=== PATIENT | male | born 1940 | race Caucasian/White ===

== ENCOUNTER 2017-05-13 22:26 | Emergency (ER) | payer MEDICARE ==
[~2017-05-13] VITALS: Ht 182.9 cm; Wt 108.9 kg
--- NOTE | 2017-05-13 22:36 | NUR ---
PT JEREMÍAS FROM A [facility]GREAG[facility] HOME TO ER BED 12 C/O CHRONIC LOWER BACK PAIN. REPORT STATES NO RECENT TRAUMA. HX OF CVA W/ L SIDED DEFICIT. GOWNED AND PLACED ON MONITOR. STABLE VITALS AWAITING MD HARTLEY.
--- NOTE | 2017-05-13 23:00 | NUR ---
DR TAM AT BEDSIDE FOR EVAL.
[2017-05-13] MEDS ORDERED: MORPHINE SULFATE INJ 4 MG/ML DISP.SYRIN ONE (23:08)
[2017-05-13] MEDS ORDERED: MORPHINE SULFATE INJ 2 MG/ML DISP.SYRIN IM ONE (23:30)
--- NOTE | 2017-05-14 00:30 | NUR ---
PT SLEEPING. ON MONITOR W/ STABLE VITALS. WILL CONTINUE TO MONITOR.
--- NOTE | 2017-05-14 03:40 | NUR ---
AMBULNZ AT BEDSIDE FOR TRANSPORT HOME.
--- NOTE | 2017-05-14 06:10 | NUR ---
dr garduno at bedside for eval.
[2017-05-14] MEDS ORDERED: HYDROCODONE/APAP 10/325MG 1 EA TABLET PO ONE (07:00)
[2017-05-14] MEDS ORDERED: ONDANSETRON 4 MG TAB.RAPDIS SL ONE (07:00)
--- NOTE | 2017-05-14 07:33 | NUR ---
patient resting in er bed, no distress noted. VITAL SIGNS UPDATED.
--- NOTE | 2017-05-14 07:37 | NUR ---
sanat bocanegra, sister [phone]. sister states he lives at a facility; [address] [facility]. [phone]
--- NOTE | 2017-05-14 07:43 | NUR ---
Sourav from [facility] took report for fco
[2017-05-14 09:21] VITALS: BP 122/75
--- NOTE | 2017-05-14 10:48 | NUR ---
SPOKE WITH AIDEN, NURSE AT [facility], TO CONTINUE CERDA OF PATIENT
--- NOTE | 2017-05-14 10:49 | NUR ---
REPORT WAS GIVEN TO EMT FOR TRANSPORT
== END 2017-05-14 09:22 | disposition home or self-care (01) ==
LOC: ER 22:28
DX: M54.5 Low back pain (principal); E11.9 Type 2 diabetes mellitus without complications; Z86.73 Personal history of transient ischemic attack (TIA), and cerebral infarction without residual deficits
CPT/HCPCS: 72131-TC; 82962-TC; A4606; J2270; Z7610

== ENCOUNTER 2017-11-28 17:20 | Inpatient (IN) | payer MEDICARE ==
[~2017-11-28] VITALS: Ht 182.9 cm; Wt 83.5 kg
--- NOTE | 2017-11-28 18:20 | NUR ---
77 Y/O MALE PLACED IN BED 2 C/O CHRONIC LOWER BACK PAIN.
--- NOTE | 2017-11-28 18:23 | NUR ---
PT APPEARS CONFUSED. WANTS ME TO TAKE HIS ARM.
[2017-11-28] MEDS ORDERED: ONDANSETRON HCL/PF 4 MG/2 ML VIAL IVP ONE (18:30)
[2017-11-28] MEDS ORDERED: MORPHINE SULFATE INJ 2 MG/ML DISP.SYRIN IV ONE ×2 (18:30→19:30)
--- NOTE | 2017-11-28 18:34 | NUR ---
22G H/L PLACED TO RIGHT FOREARM. LEFT UPPER EXTREMITY APPEARS SWOLLEN.
[2017-11-28 18:37] LABS: BASOPHILS # (AUTO) 0.1 /CMM (0.0-0.2); BASOPHILS % (AUTO) 0.7 % (0.0-2.0); EOSINOPHILS % (AUTO) 2.2 % (0.0-6.0); HEMATOCRIT 38 % (39-51); HEMOGLOBIN 12.8 g/dL (13.5-17.5); LYMPHOCYTES # (AUTO) 2.1 /CMM (0.8-4.8); LYMPHOCYTES % (AUTO) 24.7 % (20.0-44.0); MEAN CORPUSCULAR HGB CONC 34 g/dl (31.0-36.0); MEAN CORPUSCULAR VOLUME 89 fL (80-96); MONOCYTES # (AUTO) 0.7 /CMM (0.1-1.30); MONOCYTES % (AUTO) 8.5 % (2.0-12.0); NEUTROPHILS # (AUTO) 5.6 /CMM (1.8-8.9); NEUTROPHILS % (AUTO) 63.9 % (43.0-81.0); PLATELET COUNT (AUTO) 498 /CMM (150-450); RDW COEFFICIENT OF VARIATION 14.5 (11.5-15.0); RED BLOOD CELL COUNT(AUTO) 4.29 MIL/uL (4.5-6.0); WHITE BLOOD COUNT (AUTO) 8.7 K/uL (4.3-11.0)
[2017-11-28] MEDS ORDERED: ONDANSETRON HCL/PF 4 MG/2 ML VIAL ONE (18:38)
[2017-11-28] MEDS ORDERED: MORPHINE SULFATE INJ 2 MG/ML DISP.SYRIN ONE (18:39)
[2017-11-28] MEDS ORDERED: INSU100V SQ (18:44)
[2017-11-28] MEDS ORDERED: TEMA15CA PO (18:44)
[2017-11-28] MEDS ORDERED: MORP15TA7 PO (18:44)
[2017-11-28] MEDS ORDERED: ASPI-1152 PO (18:44)
[2017-11-28] MEDS ORDERED: DOCU-270 PO (18:44)
[2017-11-28] MEDS ORDERED: CLOP75TA15 PO (18:44)
[2017-11-28] MEDS ORDERED: ATOR40TA PO (18:44)
--- NOTE | 2017-11-28 18:44 | NUR ---
PT MEDICATED WITH MORPHINE AND ZOFRAN FOR PAIN.
[2017-11-28] MEDS ORDERED: ACET-868 PO (18:46)
[2017-11-28 18:47] LABS: CALCIUM, SERUM 8.9 mg/dL (8.5-10.1); CARBON DIOXIDE 27 mmol/L (21-32); CHLORIDE 105 mmol/L (98-107); CREATININE 0.7 mg/dL (0.6-1.3); GLUCOSE 111 mg/dL (74-106); POTASSIUM 3.5 mmol/L (3.5-5.1); SODIUM SERUM 139 mmol/L (136-145); UREA NITROGEN, BLOOD 8 mg/dL (7-18)
[2017-11-28 18:54] LABS: ALANINE AMINOTRANSFERASE 10 U/L (12-78); ALBUMIN 2.3 g/dL (3.4-5.0); ALKALINE PHOSPHATASE 82 U/L (46-116); ASPARTATE AMINOTRANSFERASE 19 U/L (15-37); BILIRUBIN,DIRECT 0.2 mg/dL (0.0-0.2); BILIRUBIN,TOTAL 0.7 mg/dL (0.2-1.0); TOTAL PROTEIN, SERUM 7.2 g/dL (6.4-8.2)
[2017-11-28] MEDS ORDERED: MORPHINE SULFATE INJ 4 MG/ML DISP.SYRIN ONE (19:29)
--- NOTE | 2017-11-28 20:04 | NUR ---
URINE COLLECTED. CALLED LAB FOR TRAVELING SALES REPRESENTATIVE.
--- NOTE | 2017-11-28 20:10 | NUR ---
CALLED [employer]UMINUM BOAT ASSEMBLY SUPERVISOR WAS PAGED.
[2017-11-28] MEDS ORDERED: CEFTRIAXONE 1 G VIAL IM SCH (20:30)
[2017-11-28 20:40] LABS: APPEARANCE,URINE Clear (CLEAR); BILIRUBIN,URINE SMALL (NEGATIVE); BLOOD, URINE Negative Ery/uL (NEGATIVE); KETONES,URINE 40 (NEGATIVE); LEUKOCYTE ESTERASE ,URINE Negative (NEGATIVE); NITRITE, URINE Negative (NEGATIVE); PH,URINE 5.5 (5.0-8.0); PROTEIN,URINE Negative (NEGATIVE); UGLUCOSE Negative (NEGATIVE)
[2017-11-28 20:49] LABS: COLOR,URINE Dark Yellow (YELLOW)
[2017-11-28] MEDS ORDERED: CEFTRIAXONE 1GM BAG (ER ONLY) 50 ML IV ONE (20:58)
--- NOTE | 2017-11-28 20:58 | NUR ---
REPORT GIVEN TO ELLEN WATKINS
[2017-11-28] MEDS ORDERED: CEFTRIAXONE 1GM BAG (ER ONLY) 1 GM/50 ML PIGGYBACK IV ONE (21:00)
[2017-11-28 21:02] LABS: BACTERIA,URINE Few /HPF (None Seen); RBC,URINE 0-2 /HPF (0-2); SQUAMOUS EPITHELIAL CELL,UR Few /HPF (None Seen); WBC,URINE 0-2 /HPF (0-3)
--- NOTE | 2017-11-28 21:20 | NUR ---
PT TO CT.
--- NOTE | 2017-11-28 21:26 | NUR ---
PT RETURNED FROM CT.
[2017-11-28] MEDS ORDERED: LORAZEPAM INJ 2 MG/ML VIAL ONE (21:42)
[2017-11-28] MEDS: LORAZEPAM INJ 2 MG/ML VIAL IV PRN (21:48)
--- NOTE | 2017-11-28 22:00 | NUR ---
UPDATED ELLEN WATKINS REGARDING POC/ PENDING CT ABD.
--- NOTE | 2017-11-28 22:17 | NUR ---
CALLED [facility] FOR PENDINDG CT ABD. TO BE READ NEXT.
[2017-11-28 23:25] VITALS: BP 128/76
--- NOTE | 2017-11-28 23:33 | NUR ---
PT TRANSFERRED VIA GURNEY TO MS BED 327-2
[2017-11-29] MEDS ORDERED: ONDANSETRON HCL/PF 4 MG/2 ML VIAL IVP PRN
[2017-11-29] MEDS ORDERED: ACETAMINOPHEN 325 MG TABLET PO PRN ×2
--- NOTE | 2017-11-29 00:15 | NUR ---
RN NOTE: RECEIVED PATIENT FROM ER, NO ACUTE DISTRESS NOTE. BREATHING EVEN AND UNLABORED, NO SOB NOTED. IV TO RFA IN PLACE. ORIENTED PATIENT TO ROOM AND USE OF CALL LIGHT. AWAITING ADMIT ORDERS. BED LOCKED AND IN LOWEST POSITION, CALL LIGHT IN REACH. WILL CONTINUE TO MONITOR.
[2017-11-29] MEDS ORDERED: LEVOFLOXACIN 500 MG /D5W 100ML 100 ML IV ONE (00:37)
[2017-11-29] MEDS: LEVOFLOXACIN 500 MG /D5W 100ML 500 MG in PREMIX 1 EA IV SCH ×2 (00:51→21:46)
[2017-11-29] MEDS: HYDROMORPHONE INJ 2 MG/ML DISP.SYRIN IV PRN ×2 (01:40→10:24)
--- NOTE | 2017-11-29 01:45 | NUR ---
BOAT ENGINES INSTALLER NOTE: PATIENT COMPLAINS OF BACK PAIN 08/26, DILAUDID 0.5MG IV GIVEN PER MD ORDER. WILL CONTINUE TO MONITOR.
[2017-11-29 04:00] VITALS: BP 140/64
[2017-11-29] MEDS ORDERED: DEXTROSE 50%-WATER 50 ML DISP.SYRIN IV PRN (06:00)
--- NOTE | 2017-11-29 06:30 | NUR ---
MS RN NOTE: PATIENT RESTING IN BED, NO ACUTE DISTRESS NOTED. BREATHING EVEN AND UNLABORED, NO SOB NOTED. IV TO RFA IN PLACE. TELE READING SR WITH BBB 70. PATIENT BLOOD SUGAR LEVEL 96MG/DL, NO INSULIN NEEDED PER SLIDING SCALE. SNACK PROVIDED, NO S/S OF HYPOGLYCEMIA NOTED. BED LOCKED AND IN LOWEST POSITION, CALL LIGHT IN REACH. WILL ENDORSE TO DAY NURSE TO CONTINUE WITH PLAN OF CARE.
[2017-11-29] MEDS: BLOOD SUGAR DIAGNOSTIC 1 EACH STRIP IN SCH ×4 (06:59→22:20)
[2017-11-29] MEDS ORDERED: NA PHOS,M-B/NA PHOS,DI-BA 1 EA ENEMA RC PRN (07:30)
[2017-11-29 08:00] VITALS: BP 135/60
--- NOTE | 2017-11-29 08:00 | NUR ---
CHASER HELPER AM NOTES PATIENT RESTING IN BED,WITH CONFUSION. NO ACUTE DISTRESS NOTED. BREATHING EVEN AND UNLABORED, NO SOB NOTED. IV TO RFA IN PLACE. TELE READING SR 70. PATIENT BLOOD SUGAR LEVEL 96MG/DL, NO INSULIN NEEDED PER SLIDING SCALE. SNACK PROVIDED, NO S/S OF HYPOGLYCEMIA NOTED. BED LOCKED AND IN LOWEST POSITION, CALL LIGHT WITHIN REACH. WILL CONTINUE PLAN OF CARE
[2017-11-29 08:13] LABS: BASOPHILS # (AUTO) 0.1 /CMM (0.0-0.2); BASOPHILS % (AUTO) 2.6 % (0.0-2.0); HEMATOCRIT 35 % (39-51); HEMOGLOBIN 11.4 g/dL (13.5-17.5); LYMPHOCYTES # (AUTO) 1.5 /CMM (0.8-4.8); LYMPHOCYTES % (AUTO) 25.4 % (20.0-44.0); MEAN CORPUSCULAR HGB CONC 32 g/dl (31.0-36.0); MEAN CORPUSCULAR VOLUME 92 fL (80-96); MONOCYTES # (AUTO) 0.6 /CMM (0.1-1.30); MONOCYTES % (AUTO) 10.8 % (2.0-12.0); NEUTROPHILS # (AUTO) 3.3 /CMM (1.8-8.9); NEUTROPHILS % (AUTO) 58.2 % (43.0-81.0); PLATELET COUNT (AUTO) 427 /CMM (150-450); RED BLOOD CELL COUNT(AUTO) 3.84 MIL/uL (4.5-6.0); WHITE BLOOD COUNT (AUTO) 5.7 K/uL (4.3-11.0)
[2017-11-29 08:35] LABS: ALANINE AMINOTRANSFERASE 7 U/L (12-78); ALBUMIN 2.1 g/dL (3.4-5.0); ALKALINE PHOSPHATASE 66 U/L (46-116); ASPARTATE AMINOTRANSFERASE 17 U/L (15-37); BILIRUBIN,TOTAL 0.6 mg/dL (0.2-1.0); CALCIUM, SERUM 8.7 mg/dL (8.5-10.1); CARBON DIOXIDE 24 mmol/L (21-32); CHLORIDE 103 mmol/L (98-107); CREATININE 0.7 mg/dL (0.6-1.3); GLUCOSE 99 mg/dL (74-106); MAGNESIUM 1.5 mg/dL (1.8-2.4); POTASSIUM 3.9 mmol/L (3.5-5.1); SODIUM SERUM 136 mmol/L (136-145); TOTAL PROTEIN, SERUM 6.7 g/dL (6.4-8.2); UREA NITROGEN, BLOOD 7 mg/dL (7-18)
[2017-11-29 08:38] LABS: TROPONIN I < 0.017 ng/mL (0.00-0.056)
[2017-11-29 08:46] LABS: CHOLESTEROL 170 mg/dL (<200); HDL CHOLESTEROL 54 mg/dL (40-60); LDL 111 mg/dL (0-99); THYROID STIMULATING HORMONE 1.659 uIU/mL (0.358-3.74); TRIGLYCERIDES 61 mg/dL (30-150)
[2017-11-29] MEDS: ASPIRIN EC 81 MG TABLET.DR PO SCH (10:01)
[2017-11-29] MEDS: DOCUSATE SODIUM 100 MG CAPSULE PO SCH ×2 (10:01→16:56)
[2017-11-29] MEDS: CLOPIDOGREL BISULFATE 75 MG TABLET PO SCH (10:01)
[2017-11-29] MEDS: LORAZEPAM INJ 2 MG/ML VIAL IV PRN (10:02)
[2017-11-29] MEDS: MORPHINE SULFATE SR 15 MG TABLET.SA PO SCH ×2 (10:02→16:56)
[2017-11-29] MEDS: PANTOPRAZOLE 40 MG TABLET.DR PO SCH (10:11)
[2017-11-29] MEDS: Magnesium 1GM/D5W 100ML PREMIX 100 ML IV SCH ×2 (12:18→14:35)
[2017-11-29] MEDS: INSULIN REGULAR, HUMAN 100 UNIT/ML 3 ML VIAL SQ PRN ×3 (12:24→22:23)
--- NOTE | 2017-11-29 15:30 | NUR ---
PT MOVED TO ROOM 304-1 NEEDING A SITTER DUE TO SEVERE RESTLESSNESS,HANGING HIS LEGS OVER THE SIDERAILS SEVERAL TIMES,RIPPING OFF HIS DIAPER SEVERAL TIMES AND REPLACING THEM TO A NEW ONE,INSPITE OF REORIENTATION GIVEN FREQUENTLY.NOTIFIED DODIE ANGUIANO WITH ORDERS FOR SITTER 1:1.
[2017-11-29] MEDS ORDERED: SILVER NITRATE APPLICATOR 1 EA BOX TP ONE (16:30)
[2017-11-29] MEDS ORDERED: LIDOCAINE 2%-EPI 1:100,000 30 ML VIAL TP ONE (16:30)
--- NOTE | 2017-11-29 18:00 | NUR ---
PT ATE 100% WITH VERY GOOD APPETITE.DENIES ANY PAIN OR DISTRESS.PLACED ON AIR MATTRESS.TURNED EVERY TWO HRS.WITH 1:1 SITTER AT BEDSIDE DUE TO RESTLESSNESS AND CONFUSION.WILL MONITOR.
[2017-11-29] MEDS: NYSTATIN TOP POWDER 15 GM BOTTLE TP SCH (18:30)
[2017-11-29] MEDS: NEOMY SULF/BACITRAC ZN/POLY 15 GM TUBE TP SCH (18:30)
--- NOTE | 2017-11-29 19:30 | NUR ---
MS RN OPENING NOTES RECEIVED PATIENT RESTING IN BED, A & O X1 WITH CONFUSION. NO S/S OF PAIN, NO ACUTE DISTRESS NOTED. BREATHING EVEN AND UNLABORED, NO SOB NOTED, AT RA SATTING 95%. IV ACCESS LEFT HAND, SL. PER REPORT, ON 1:1 SITTER FOR SAFETY DUE TO RESTLESSNESS & ATTEMPTING TO PULL IV ACCESS & REMOVING HIS CLOTHES/DIAPER CONSTANTLY. NO S/S OF HYPOGLYCEMIA NOTED. BED LOCKED AND IN LOWEST POSITION, SAFETY MEASURES IN PLACE. CALL LIGHT WITHIN REACH. WILL CONTINUE TO OBSERVE CLOSELY.
[2017-11-29 20:00] VITALS: BP 149/80
[2017-11-29] MEDS ORDERED: LORAZEPAM INJ 2 MG/ML VIAL IV PRN (21:00)
[2017-11-29 21:15] VITALS: BP 132/75
--- NOTE | 2017-11-29 21:38 | NUR ---
PRN ATIVAN GIVEN DR MOORE WAS CALLED TO CLARIFY ATIVAN ORDER, MD DISCONTINUED PREVIOUS ATIVAN WITH NEW ATIVAN ORDER. NOTED & CARRIED OUT. PATIENT NOTED TO BE ANXIOUS, RESTLESS AT THIS TIME, MD MADE AWARE & PRN ATIVAN GIVEN ORDERED. PT IS ON 1:1 SITTER OBSERVATION WELL FOR SAFETY. WILL REASSESS FOR EFFECTIVENESS.
--- NOTE | 2017-11-29 21:40 | NUR ---
IV SITE CHANGED PATIENT NOTED TO BE AGITATED, PULLED HIS IV CATH FROM LEFT HAND, VERY MINIMAL BLEEDING NOTED, PRESSURE DRESSING APPLIED. NEW IV CATH INSERTED TO RIGHT FOREARM WITH GOOD BLOOD FLOW. PROCEDURE TOLERATED WELL BY THE PATIENT. WILL MONITOR CLOSELY.
[2017-11-29] MEDS: ATORVASTATIN 40 MG TABLET PO SCH (21:46)
--- NOTE | 2017-11-29 23:00 | NUR ---
MS RN NOTE PATIENT NOTED TO BE AWAKE BUT RELAXED AT THIS TIME. ON 1:1 SITTER FOR SAFETY. WILL MONITOR CLOSELY.
[2017-11-30] MEDS: NYSTATIN TOP POWDER 15 GM BOTTLE TP SCH ×2 (05:38→16:46)
--- NOTE | 2017-11-30 06:47 | NUR ---
MS RN CLOSING NOTES PATIENT SLEPT INTERMITTENTLY AT NIGHT, A & O X1 WITH CONFUSION. NO S/S OF PAIN, NO ACUTE DISTRESS NOTED. BREATHING EVEN AND UNLABORED, NO SOB NOTED, AT RA SATTING 96%. IV ACCESS TO RIGHT FA, SL. ON 1:1 SITTER FOR SAFETY. ALL NEEDS MET. TURNED & REPOSITIONED PER PROTOCOL. BED LOCKED AND IN LOWEST POSITION, SAFETY MEASURES IN PLACE. CALL LIGHT WITHIN REACH. WILL ENDORSE TO AM RN FOR CONTINUITY OF CARE.
--- NOTE | 2017-11-30 07:00 | NUR ---
RN OPENING NOTES RECEIVED PT. IN BED A&OX1, AND CONFUSED. BREATHING IS UNLABORED ON ROOM AIR. NO S/S OF ACUTE DISTRESS. PT. HAS A 1:1 SITTER AT BEDSIDE. BED IS IN LOWEST, AND LOCKED POSITION. 2 SIDE RAILS UP, AND CALL LIGHT WITHIN REACH. ALL NEED MET. WILL CONTINUE TO ASSESS AND MONITOR.
[2017-11-30] MEDS: BLOOD SUGAR DIAGNOSTIC 1 EACH STRIP IN SCH ×4 (07:24→21:51)
[2017-11-30] MEDS: PANTOPRAZOLE 40 MG TABLET.DR PO SCH (07:30)
[2017-11-30 07:37] VITALS: BP 112/70
--- NOTE | 2017-11-30 07:55 | NUR ---
PROTONIX WAS NOT ADMINISTERED. PT. NEEDS ALL MEDICATIONS CRUSHED IN APPLE SAUCE. PROTONIX TAB CANNOT BE CRUSHED.
[2017-11-30] MEDS: MORPHINE SULFATE SR 15 MG TABLET.SA PO SCH (09:00)
[2017-11-30] MEDS ORDERED: PANTOPRAZOLE 40 MG/PACK PACK NG SCH (09:04)
[2017-11-30] MEDS: NEOMY SULF/BACITRAC ZN/POLY 15 GM TUBE TP SCH (09:13)
[2017-11-30] MEDS: ASPIRIN EC 81 MG TABLET.DR PO SCH (09:13)
[2017-11-30] MEDS: CLOPIDOGREL BISULFATE 75 MG TABLET PO SCH (09:13)
[2017-11-30 09:52] LABS: CALCIUM, SERUM 7.9 mg/dL (8.5-10.1); CARBON DIOXIDE 24 mmol/L (21-32); CHLORIDE 102 mmol/L (98-107); CREATININE 0.7 mg/dL (0.6-1.3); GLUCOSE 108 mg/dL (74-106); POTASSIUM 4.1 mmol/L (3.5-5.1); SODIUM SERUM 135 mmol/L (136-145); UREA NITROGEN, BLOOD 5 mg/dL (7-18)
[2017-11-30 09:54] LABS: BASOPHILS % (AUTO) 0.9 % (0.0-2.0); EOSINOPHILS % (AUTO) 1.4 % (0.0-6.0); HEMATOCRIT 33 % (39-51); HEMOGLOBIN 10.8 g/dL (13.5-17.5); LYMPHOCYTES # (AUTO) 1.1 /CMM (0.8-4.8); MEAN CORPUSCULAR HGB CONC 33 g/dl (31.0-36.0); MEAN CORPUSCULAR VOLUME 91 fL (80-96); MONOCYTES # (AUTO) 0.6 /CMM (0.1-1.30); MONOCYTES % (AUTO) 11.5 % (2.0-12.0); NEUTROPHILS # (AUTO) 3.5 /CMM (1.8-8.9); NEUTROPHILS % (AUTO) 65.2 % (43.0-81.0); PLATELET COUNT (AUTO) 413 /CMM (150-450); RDW COEFFICIENT OF VARIATION 15.8 (11.5-15.0); RED BLOOD CELL COUNT(AUTO) 3.58 MIL/uL (4.5-6.0); WHITE BLOOD COUNT (AUTO) 5.4 K/uL (4.3-11.0)
[2017-11-30] MEDS ORDERED: MORPHINE SULFATE INJ 4 MG/ML DISP.SYRIN IV PRN (10:00)
[2017-11-30 10:17] LABS: INR 1.05 (0.87-1.13)
[2017-11-30] MEDS: INSULIN REGULAR, HUMAN 100 UNIT/ML 3 ML VIAL SQ PRN ×3 (12:00→21:52)
[2017-11-30 15:50] VITALS: BP 115/59
[2017-11-30] MEDS: PANTOPRAZOLE 40 MG VIAL IV SCH (16:33)
[2017-11-30] MEDS: Magnesium 1GM/D5W 100ML PREMIX 100 ML IV SCH ×2 (16:40→17:51)
[2017-11-30] MEDS: DOCUSATE SODIUM LIQ 100 MG/10 ML UDC PO SCH (16:47)
--- NOTE | 2017-11-30 18:25 | NUR ---
RAPID INFLUENZA AND SPUTUM CULTURE WAS COLLECTED AND LAB WAS NOTIFIED.
--- NOTE | 2017-11-30 19:00 | NUR ---
RN CLOSING NOTES PT. IS IN BED A&OX1, AND CONFUSED. BREATHING IS UNLABORED ON ROOM AIR. NO S/S OF ACUTE DISTRESS. PT. HAS A 1:1 SITTER AT BEDSIDE. BED IS IN LOWEST, AND LOCKED POSITION. 2 SIDE RAILS UP, AND CALL LIGHT WITHIN REACH. ALL NEED MET. WILL ENDORSE REPORT TO NURSE.
--- NOTE | 2017-11-30 19:50 | NUR ---
RN OPENING NOTES PT AWAKE AND ALERT TO NAME. SITTER AT BEDSIDE. PT IS IN ROOM AIR, TOLERATING WELL, NO SIGNS OF DISTRESS, NO SOB. IV ACCESS ON THE RIGHT FOREARM 24G PATENT AND INTACT. WOUND DRESSINGS ARE INTACT, WILL CHANGE LATER. PT VOMITTED YELLOW. PT GIVEN ZOFRAN, WILL CONTINUE TO MONITOR. SAFETY MEASURES IN PLACED, CALL LIGHT WITHIN REACH. WILL CONTINUE TO MONITOR PT.
[2017-11-30 20:00] VITALS: BP 130/69
--- NOTE | 2017-11-30 21:24 | NUR ---
RN NOTES/ TRANSFER OF CARE GAVE REPORT TO ELLEN PRATT FOR TRANSFER OF CONTINUITY CARE. PATIENT IS STABLE AT THIS MOMENT, SLEEPING IN BED, EASILY AROUSED. NO NAUSEA AND VOMITING. SITTER AT BEDSIDE.
--- NOTE | 2017-11-30 21:30 | NUR ---
RN INITIAL NOTES: RECEIVED REPORT FROM RUBIO HUGHES. PT IN BED, CONFUSED A/O X1 TO SELF ONLY, SITTER AT BED SIDE, PT TRYING TO GET OUT OF BED BY MANAGING TO PUT HIS LEGS OUT OF THE BED. IV ACCESS PATENT AND FLUSHING WELL, ON HL. BLE OFFLOADED. ON [employer] MATTRESS. SAFETY PRECAUTIONS FOR FALL INITIATED, CALL LIGHT IN REACH WILL CONTINUE MONITORING PT
[2017-11-30] MEDS: ATORVASTATIN 40 MG TABLET PO SCH (21:52)
--- NOTE | 2017-11-30 21:52 | NUR ---
bs 154: accu check performed and result is 154, insulin held at this time as pt been throwing up with food particles yellow colored, prn zofran administered. will montior for any s/s of hypoglycemia
[2017-11-30] MEDS: CADEXOMER IODINE 40 GM TUBE TP SCH (21:59)
[2017-11-30] MEDS: LEVOFLOXACIN 500 MG /D5W 100ML 500 MG in PREMIX 1 EA IV SCH (21:59)
--- NOTE | 2017-12-01 02:30 | NUR ---
TRANSFER OF CARE: PT IN BED, REMAINS CONFUSED, ON RA. SITTER AT BED SIDE. NO FACIAL GRIMACE NOTED, IV ACCESS REMAINS PATENT AND FLUSHING WELL, ON HL. REPORT GIVEN TO RUBIO HUGHES FOR CONTINUITY OF CARE.
[2017-12-01] MEDS: NYSTATIN TOP POWDER 15 GM BOTTLE TP SCH ×2 (05:19→16:33)
[2017-12-01 06:26] LABS: BASOPHILS % (AUTO) 0.5 % (0.0-2.0); EOSINOPHILS % (AUTO) 0.4 % (0.0-6.0); HEMATOCRIT 36 % (39-51); HEMOGLOBIN 11.7 g/dL (13.5-17.5); LYMPHOCYTES # (AUTO) 1.2 /CMM (0.8-4.8); MEAN CORPUSCULAR HGB CONC 33 g/dl (31.0-36.0); MEAN CORPUSCULAR VOLUME 91 fL (80-96); MONOCYTES # (AUTO) 0.6 /CMM (0.1-1.30); MONOCYTES % (AUTO) 6.1 % (2.0-12.0); NEUTROPHILS # (AUTO) 7.8 /CMM (1.8-8.9); PLATELET COUNT (AUTO) 450 /CMM (150-450); RDW COEFFICIENT OF VARIATION 15.7 (11.5-15.0); RED BLOOD CELL COUNT(AUTO) 3.92 MIL/uL (4.5-6.0); WHITE BLOOD COUNT (AUTO) 9.6 K/uL (4.3-11.0)
[2017-12-01] MEDS: BLOOD SUGAR DIAGNOSTIC 1 EACH STRIP IN SCH ×4 (06:31→22:32)
[2017-12-01] MEDS: INSULIN REGULAR, HUMAN 100 UNIT/ML 3 ML VIAL SQ PRN ×3 (06:32→22:28)
--- NOTE | 2017-12-01 06:35 | NUR ---
RN NOTES/ BLOOD SUGAR BLOOD SUGAR OF 137, 2 UNITS OF INSULIN GIVEN. NO SIGNS OF HYPO/HYPERGLYCEMIA.
--- NOTE | 2017-12-01 06:41 | NUR ---
RN CLOSING NOTES PT AWAKE AND ALERT TO NAME, FORGETFUL. SITTER AT BEDSIDE. PT IS IN ROOM AIR, TOLERATING WELL, NO SIGNS OF DISTRESS, NO SOB. IV ACCESS ON THE RIGHT FOREARM 24G PATENT AND INTACT. WOUND DRESSINGS ARE INTACT. DENIES ANY NAUSEA, NO VOMITING. SUPPLIES FOR DEBRIDEMENT IS AT BEDSIDE. SAFETY MEASURES IN PLACED, CALL LIGHT WITHIN REACH. WILL ENDORSE CONTINUITY OF CARE TO ONCOMING RN.
[2017-12-01 06:46] LABS: CALCIUM, SERUM 8.2 mg/dL (8.5-10.1); CARBON DIOXIDE 26 mmol/L (21-32); CHLORIDE 103 mmol/L (98-107); CREATININE 0.8 mg/dL (0.6-1.3); GLUCOSE 150 mg/dL (74-106); MAGNESIUM 1.8 mg/dL (1.8-2.4); PHOSPHORUS 2.2 mg/dL (2.5-4.9); POTASSIUM 3.5 mmol/L (3.5-5.1); SODIUM SERUM 138 mmol/L (136-145); UREA NITROGEN, BLOOD 5 mg/dL (7-18)
--- NOTE | 2017-12-01 07:50 | NUR ---
MS RN OPENING NOTES PT WAS RECEIVED IN BED AT LOWEST AND LOCKED POSITION WITH SIDE RAILS UP X2, A/OX 1, NO S/S OF PAIN OR DISTRESS NOTED, BREATHING EVEN AND UNLABORED ON RA, IV IS PATENT AND INTACT, SITTER AT BEDSIDE, SAFETY PRECAUTIONS IN PLACE, CALL LIGHT IN REACH, WILL MONITOR ACCORDINGLY.
[2017-12-01] MEDS: DOCUSATE SODIUM LIQ 100 MG/10 ML UDC PO SCH ×3 (08:23→16:16)
[2017-12-01] MEDS: ASCORBIC ACID 500 MG TABLET PO SCH (08:23)
[2017-12-01] MEDS: CLOPIDOGREL BISULFATE 75 MG TABLET PO SCH (08:24)
[2017-12-01] MEDS: ASPIRIN EC 81 MG TABLET.DR PO SCH (08:24)
[2017-12-01] MEDS: ZINC SULFATE 220 MG CAPSULE PO SCH (08:24)
[2017-12-01] MEDS: NEOMY SULF/BACITRAC ZN/POLY 15 GM TUBE TP SCH (08:25)
[2017-12-01] MEDS: CADEXOMER IODINE 40 GM TUBE TP SCH ×2 (08:25→22:31)
--- NOTE | 2017-12-01 08:29 | NUR ---
PT HAD BM SO COLACE WAS HELD
--- NOTE | 2017-12-01 12:00 | NUR ---
WOUND DEBRIDEMENT PERFORMED AT BEDSIDE AT THIS TIME, WILL MONITOR PT ACCORDINGLY
[2017-12-01] MEDS: GABAPENTIN 100 MG CAPSULE PO SCH ×2 (12:11→16:15)
[2017-12-01] MEDS ORDERED: NEUTRA PHOS 1 POWD.PACKET PO ONE (13:00)
[2017-12-01] MEDS: PANTOPRAZOLE 40 MG VIAL IV SCH (16:16)
[2017-12-01] MEDS: NAPROXEN 250 MG TABLET PO SCH (16:16)
--- NOTE | 2017-12-01 16:53 | NUR ---
PT BLOOD GLUCOSE WAS NOTED TO BE 95, PER SLIDING SCALE NO INSULIN REQUIRED AT THIS TIME, WILL MONITOR ACCORDINGLY
--- NOTE | 2017-12-01 18:19 | NUR ---
MS RN CLOSING NOTES PT IN BED AT LOWEST AND LOCKED POSITION WITH SIDE RAILS UP X2, A/OX 1-2, NO S/S OF PAIN OR DISTRESS NOTED, BREATHING EVEN AND UNLABORED ON RA, IV IS PATENT AND INTACT, SITTER AT BEDSIDE, WOUND DEBRIDEMENT PERFORMED TODAY, SAFETY PRECAUTIONS IN PLACE, CALL LIGHT IN REACH, ALL NEEDS ATTENDED TO, WILL ENDORSE TO ONCOMING NIGHT NURSE FOR CONTINUITY OF CARE.
--- NOTE | 2017-12-01 19:30 | NUR ---
MS/RN RECEIVE PATIENT SLEEPING, AROUSABLE, APPEAR COMFORTABLE, NO DISTRESS NOTED, CALL LIGHT IN REACH. WILL MONITOR.
[2017-12-01 20:00] VITALS: BP 110/65
[2017-12-01] MEDS: LEVOFLOXACIN (500MG) 500 MG TABLET PO SCH (22:00)
[2017-12-01] MEDS: ATORVASTATIN 40 MG TABLET PO SCH (22:00)
--- NOTE | 2017-12-01 22:32 | NUR ---
MS/RN UNABLE TO GIVE DUE PO MEDS AT THIS TIME, PATIENT IS SLEEPING, RISK FOR ASPIRATION. WILL GIVE WHEN FULLY AWAKE LATER.
[2017-12-02] MEDS: NYSTATIN TOP POWDER 15 GM BOTTLE TP SCH ×2 (05:30→17:23)
[2017-12-02] MEDS: BLOOD SUGAR DIAGNOSTIC 1 EACH STRIP IN SCH ×4 (06:30→21:18)
--- NOTE | 2017-12-02 06:32 | NUR ---
MS/RN PATIENT IS AWAKE AT THIS TIME, ACCU CHECK DONE, BLOOD SUGAR 62, NO S/S OF HYPOGLYCEMIA, ORANGE JUICE GIVEN, WILL MONITOR.
[2017-12-02 06:38] LABS: CALCIUM, SERUM 8.7 mg/dL (8.5-10.1); CARBON DIOXIDE 26 mmol/L (21-32); CHLORIDE 105 mmol/L (98-107); CREATININE 0.7 mg/dL (0.6-1.3); GLUCOSE 78 mg/dL (74-106); MAGNESIUM 1.9 mg/dL (1.8-2.4); PHOSPHORUS 3.2 mg/dL (2.5-4.9); POTASSIUM 4.4 mmol/L (3.5-5.1); SODIUM SERUM 138 mmol/L (136-145); UREA NITROGEN, BLOOD 8 mg/dL (7-18)
--- NOTE | 2017-12-02 07:30 | NUR ---
MS RN NOTES PATIENT IN BED AWAKE, VERBALLY RESPONSIVE, NO ACUTE DISTRESS NOTED, BREATHING UNLABORED. DENIED ANY PAIN AT THIS TIME. SAFETY MEASURES IN PLACE. SITTER AT BEDSIDE. WILL CONTINUE TO MONITOR ACCORDINGLY.
--- NOTE | 2017-12-02 08:10 | NUR ---
MS RN NOTES PATIENT IN BED, HOB ELEVATED, ATE BREAKFAST, BLOOD SUGAR RECHECKED 139. NO S/X OF HYPERGLYCEMIA NOTED.
[2017-12-02] MEDS: DOCUSATE SODIUM LIQ 100 MG/10 ML UDC PO SCH ×2 (08:54→17:21)
[2017-12-02] MEDS: ZINC SULFATE 220 MG CAPSULE PO SCH (08:54)
[2017-12-02] MEDS: ASCORBIC ACID 500 MG TABLET PO SCH (08:54)
[2017-12-02] MEDS: GABAPENTIN 100 MG CAPSULE PO SCH ×3 (08:54→17:21)
[2017-12-02] MEDS: ASPIRIN EC 81 MG TABLET.DR PO SCH (08:54)
[2017-12-02] MEDS: CADEXOMER IODINE 40 GM TUBE TP SCH ×2 (08:57→21:18)
[2017-12-02] MEDS: NEOMY SULF/BACITRAC ZN/POLY 15 GM TUBE TP SCH (08:59)
[2017-12-02] MEDS: CLOPIDOGREL BISULFATE 75 MG TABLET PO SCH (09:34)
[2017-12-02] MEDS: NAPROXEN 250 MG TABLET PO SCH ×2 (10:22→17:21)
[2017-12-02 10:23] LABS: BASOPHILS # (AUTO) 0.1 /CMM (0.0-0.2); BASOPHILS % (AUTO) 0.8 % (0.0-2.0); EOSINOPHILS % (AUTO) 3.8 % (0.0-6.0); HEMATOCRIT 36 % (39-51); HEMOGLOBIN 11.6 g/dL (13.5-17.5); LYMPHOCYTES # (AUTO) 1.5 /CMM (0.8-4.8); LYMPHOCYTES % (AUTO) 18.4 % (20.0-44.0); MEAN CORPUSCULAR HGB CONC 33 g/dl (31.0-36.0); MEAN CORPUSCULAR VOLUME 92 fL (80-96); MONOCYTES # (AUTO) 0.5 /CMM (0.1-1.30); MONOCYTES % (AUTO) 6.6 % (2.0-12.0); NEUTROPHILS # (AUTO) 5.6 /CMM (1.8-8.9); NEUTROPHILS % (AUTO) 70.4 % (43.0-81.0); PLATELET COUNT (AUTO) 462 /CMM (150-450); RDW COEFFICIENT OF VARIATION 16.1 (11.5-15.0); RED BLOOD CELL COUNT(AUTO) 3.85 MIL/uL (4.5-6.0)
[2017-12-02] MEDS: PANTOPRAZOLE 40 MG VIAL IV SCH (17:21)
--- NOTE | 2017-12-02 19:00 | NUR ---
MS RN NOTES PATIENT IN BED AWAKE, VERBALLY RESPONSIVE, NO ACUTE DISTRESS NOTED, BREATHING UNLABORED. DENIED ANY PAIN AT THIS TIME. DUE MEDICATIONS GIVEN, NO ASE NOTED. NEEDS ATTENDED AND ANTICIPATED. KEPT CLEAN DRY AND COMFORTABLE. HOB ELEVATED. SAFETY MEASURES IN PLACE. SITTER AT BEDSIDE. ENDORSED TO NIGHT NURSE FOR CONTINUITY OF CARE..
--- NOTE | 2017-12-02 19:30 | NUR ---
MS/RN RECEIVE PATIENT AWAKE, ALERT, ORIENTED, COMFORTABLE, NO C/O PAIN, NO DISTRESS NOTED, SITTER AT BEDSIDE. WILL MONITOR.
[2017-12-02 20:00] VITALS: BP 100/62
[2017-12-02] MEDS: ATORVASTATIN 40 MG TABLET PO SCH (21:05)
[2017-12-02] MEDS: LEVOFLOXACIN (500MG) 500 MG TABLET PO SCH (21:06)
--- NOTE | 2017-12-02 21:09 | NUR ---
MS/RN BLOOD SUGAR 155, DID NOT COVER, PATIENT DOES NOT WANT TO HAVE SNACK. EPISODE OF LOW BLOOD SUGAR IN THE A.M.
--- NOTE | 2017-12-03 00:04 | NUR ---
MS/RN PATIENT IS SLEEPING AT THIS TIME, AROUSABLE, APPEAR COMFORTABLE, NO DISTRESS NOTED, SITTER AT BEDSIDE. WILL CONTINUE TO MONITOR.
[2017-12-03] MEDS: NYSTATIN TOP POWDER 15 GM BOTTLE TP SCH ×2 (05:35→17:02)
--- NOTE | 2017-12-03 06:07 | NUR ---
MS/RN PATIENT IS SLEEPING, AROUSABLE, APPEAR COMFORTABLE, NO DISTRESS NOTED, SITTER AT BEDSIDE. ALL NEEDS ATTENDED AT THIS TIME, WILL CONTINUE TO MONITOR.
[2017-12-03 06:20] LABS: BASOPHILS % (AUTO) 0.5 % (0.0-2.0); EOSINOPHILS % (AUTO) 6.1 % (0.0-6.0); HEMATOCRIT 35 % (39-51); HEMOGLOBIN 11.4 g/dL (13.5-17.5); LYMPHOCYTES # (AUTO) 1.5 /CMM (0.8-4.8); MEAN CORPUSCULAR HGB CONC 33 g/dl (31.0-36.0); MEAN CORPUSCULAR VOLUME 92 fL (80-96); MONOCYTES # (AUTO) 0.5 /CMM (0.1-1.30); MONOCYTES % (AUTO) 8.5 % (2.0-12.0); NEUTROPHILS # (AUTO) 3.8 /CMM (1.8-8.9); NEUTROPHILS % (AUTO) 60.9 % (43.0-81.0); PLATELET COUNT (AUTO) 390 /CMM (150-450); RDW COEFFICIENT OF VARIATION 16.5 (11.5-15.0); RED BLOOD CELL COUNT(AUTO) 3.77 MIL/uL (4.5-6.0); WHITE BLOOD COUNT (AUTO) 6.2 K/uL (4.3-11.0)
[2017-12-03 06:33] LABS: CALCIUM, SERUM 8.4 mg/dL (8.5-10.1); CARBON DIOXIDE 26 mmol/L (21-32); CHLORIDE 105 mmol/L (98-107); CREATININE 0.8 mg/dL (0.6-1.3); GLUCOSE 117 mg/dL (74-106); MAGNESIUM 1.6 mg/dL (1.8-2.4); PHOSPHORUS 3.1 mg/dL (2.5-4.9); POTASSIUM 4.1 mmol/L (3.5-5.1); SODIUM SERUM 138 mmol/L (136-145); UREA NITROGEN, BLOOD 10 mg/dL (7-18)
[2017-12-03] MEDS: BLOOD SUGAR DIAGNOSTIC 1 EACH STRIP IN SCH ×4 (06:55→21:19)
--- NOTE | 2017-12-03 07:47 | NUR ---
RN NOTES PATIENT A/OX1, ABLE TO MAKE NEEDS KNOWN, BREATHING EVEN AND UNLABORED, NO SOB NOTED, NO S/SX OF DISTRESS. SITTER AT BEDSIDE, CALL LIGHT WITHIN REACH, WILL CONTINUE TO MONITOR.
[2017-12-03 08:00] VITALS: BP 110/68
[2017-12-03] MEDS: DOCUSATE SODIUM LIQ 100 MG/10 ML UDC PO SCH ×2 (08:35→17:01)
[2017-12-03] MEDS: ZINC SULFATE 220 MG CAPSULE PO SCH (08:35)
[2017-12-03] MEDS: NAPROXEN 250 MG TABLET PO SCH ×2 (08:35→16:58)
[2017-12-03] MEDS: CLOPIDOGREL BISULFATE 75 MG TABLET PO SCH (08:35)
[2017-12-03] MEDS: ASPIRIN EC 81 MG TABLET.DR PO SCH (08:35)
[2017-12-03] MEDS: ASCORBIC ACID 500 MG TABLET PO SCH (08:35)
[2017-12-03] MEDS: GABAPENTIN 100 MG CAPSULE PO SCH ×3 (08:35→17:01)
[2017-12-03] MEDS: CADEXOMER IODINE 40 GM TUBE TP SCH ×2 (08:36→21:19)
[2017-12-03] MEDS: NEOMY SULF/BACITRAC ZN/POLY 15 GM TUBE TP SCH (08:36)
[2017-12-03] MEDS: Magnesium 1GM/D5W 100ML PREMIX 100 ML IV SCH ×2 (11:35→13:19)
[2017-12-03] MEDS: INSULIN REGULAR, HUMAN 100 UNIT/ML 3 ML VIAL SQ PRN ×2 (11:53→21:23)
[2017-12-03 16:00] VITALS: BP 95/66
[2017-12-03] MEDS: PANTOPRAZOLE 40 MG VIAL IV SCH (16:56)
--- NOTE | 2017-12-03 18:32 | NUR ---
RN NOTES PATIENT A/OX1-2, NO SIGNIFICANT CHANGE THIS SHIFT. CT OF THE NECK COMPLETED. DENIES PAIN OR DISCOMFORT AT THIS TIME. TURNED AND REPOSITIONED EVERY 2 HOURS. WOUND TREATMENT RENDERED, SKIN CARE PROVIDED, NEEDS ATTENDED AND MET, CALL LIGHT WITHIN REACH, WILL ENDORSE TO INDUSTRIAL ENERGY ENGINEER FOR LUNA.
--- NOTE | 2017-12-03 19:30 | NUR ---
RECEIVED PATIENT IN BED AWAKE, AO X 2, ABLE TO MAKE NEEDS KNOWN. NO ACUTE DISTRESS NOTED. MONITORED FOR PAIN. IV SITE PATENT, INTACT; FLUSHED. SAFETY REMINDERS GIVEN. ON LOW BED WITH BILATERAL UPPER SIDE RAILS UP. CALL [place] WITHIN EASY REACH. WILL CONTINUE TO MONITOR.
[2017-12-03 20:00] VITALS: BP 117/58
[2017-12-03] MEDS: ATORVASTATIN 40 MG TABLET PO SCH (21:21)
[2017-12-04] MEDS: TEMAZEPAM 15 MG CAPSULE PO PRN (01:20)
[2017-12-04] MEDS: NYSTATIN TOP POWDER 15 GM BOTTLE TP SCH ×2 (05:22→16:58)
--- NOTE | 2017-12-04 06:00 | NUR ---
PATIENT AWAKE IN BED. RESPIRATIONS EVEN. NO SIGNS OF PAIN NOTED. NO SYMPTOMS OF HYPER/HYPOGLYCEMIA. DUE MEDS GIVEN WITH NO ASE NOTED. NEEDS ATTENDED. KEPT CLEAN, DRY, AND COMFORTABLE. SAFETY PRECAUTIONS AND COMFORT MEASURES IN PLACE. WILL GIVE REPORT TO DAY SHIFT FOR CONTINUITY OF CARE.
[2017-12-04 06:15] LABS: CALCIUM, SERUM 8.1 mg/dL (8.5-10.1); CARBON DIOXIDE 27 mmol/L (21-32); CHLORIDE 102 mmol/L (98-107); CREATININE 0.9 mg/dL (0.6-1.3); GLUCOSE 142 mg/dL (74-106); POTASSIUM 4.1 mmol/L (3.5-5.1); SODIUM SERUM 135 mmol/L (136-145); UREA NITROGEN, BLOOD 12 mg/dL (7-18)
[2017-12-04] MEDS: BLOOD SUGAR DIAGNOSTIC 1 EACH STRIP IN SCH ×4 (06:49→22:26)
[2017-12-04] MEDS ORDERED: NAPROXEN 250 MG TABLET PO PRN (09:30)
[2017-12-04] MEDS: CLOPIDOGREL BISULFATE 75 MG TABLET PO SCH (09:56)
[2017-12-04] MEDS: GABAPENTIN 100 MG CAPSULE PO SCH ×3 (09:56→16:58)
[2017-12-04] MEDS: ASCORBIC ACID 500 MG TABLET PO SCH (09:57)
[2017-12-04] MEDS: DOCUSATE SODIUM LIQ 100 MG/10 ML UDC PO SCH ×2 (09:57→16:58)
[2017-12-04] MEDS: ASPIRIN EC 81 MG TABLET.DR PO SCH (09:57)
[2017-12-04] MEDS: CADEXOMER IODINE 40 GM TUBE TP SCH ×2 (09:57→21:10)
[2017-12-04] MEDS: ZINC SULFATE 220 MG CAPSULE PO SCH (09:57)
[2017-12-04] MEDS: NEOMY SULF/BACITRAC ZN/POLY 15 GM TUBE TP SCH (09:58)
[2017-12-04] MEDS ORDERED: ENOXAPARIN SODIUM 40 MG/0.4 ML DISP.SYRIN SQ SCH (13:00)
[2017-12-04] MEDS ORDERED: ENOXAPARIN SODIUM 30 MG/0.3 ML DISP.SYRIN SQ SCH (13:00)
--- NOTE | 2017-12-04 13:44 | NUR ---
PATIENT AWAKE IN BED. RESPIRATIONS EVEN. NO SIGNS OF PAIN NOTED. DUE MEDS GIVEN WITH NO ASE NOTED. NEEDS ATTENDED. KEPT CLEAN, DRY, AND COMFORTABLE. SAFETY PRECAUTIONS AND COMFORT MEASURES IN PLACE. WILL CONTINUE TO TREAT AND MONITOR.
[2017-12-04] MEDS: PANTOPRAZOLE 40 MG VIAL IV SCH (16:57)
[2017-12-04] MEDS: NAPROXEN 250 MG TABLET PO SCH (16:58)
[2017-12-04 20:00] VITALS: BP 113/65
--- NOTE | 2017-12-04 20:23 | NUR ---
RN OPENING NOTES RECEIVED PT IN BED, AWAKE, A/O X2, BREATHING EVEN AND UNLABORED ON RA, NO COMPLAINT OF PAIN OR DISCOMFORT AT THE MOMENT. IV ACCESS ON THE RFA #24G PATENT AND FLUSHING. BED IN LOWEST LOCKED POSITION, CALL LIGHT WITHIN REACH AT ALL TIMES, WILL CONTINUE TO MONITOR.
[2017-12-04] MEDS: ATORVASTATIN 40 MG TABLET PO SCH (21:11)
[2017-12-05] MEDS: TEMAZEPAM 15 MG CAPSULE PO PRN (00:53)
[2017-12-05] MEDS: NYSTATIN TOP POWDER 15 GM BOTTLE TP SCH (05:07)
[2017-12-05 05:39] VITALS: BP 113/65
[2017-12-05] MEDS: BLOOD SUGAR DIAGNOSTIC 1 EACH STRIP IN SCH ×2 (06:17→12:01)
[2017-12-05] MEDS: INSULIN REGULAR, HUMAN 100 UNIT/ML 3 ML VIAL SQ PRN (06:18)
--- NOTE | 2017-12-05 07:16 | NUR ---
RN MS CLOSING NOTES PT REMAINS IN BED, AWAKE, ALERT X 2, BREATHING EVEN AND UNLABORED ON RA AND TOLERATING. NO COMPLAINT OF PAIN OR DISCOMFORT, KEPT CLEAN AND DRY AT ALL TIMES, CHANGED DIPPER 5 TIMES DURING SHIFT. BED IN LOWEST LOCKED POSITION, CALL LIGHT WITHIN REACH AT ALL TIMES, NO SIGNIFICANT CHANGE DURING SHIFT, WILL ENDORSE TO NIGHT NURSE FOR LUNA
--- NOTE | 2017-12-05 07:40 | NUR ---
MS RN OPENING NOTES RECEIVED PT IN BED, AWAKE, A/O X1, BREATHING EVEN AND UNLABORED ON RA, NO COMPLAINT OF PAIN OR DISCOMFORT AT THIS TIME. IV ACCESS ON THE RFA #24G PATENT/INTACT FLUSHING WELL. BED IN LOWEST LOCKED POSITION, CALL LIGHT WITHIN REACH , 1;1 SITTER. PO MEDICATION SHOULD BE CRUSHED AND GIVEN WITH APPLE SAUCE. WILL CONTINUE TO MONITOR.
[2017-12-05 08:00] VITALS: BP 131/88
[2017-12-05] MEDS: DOCUSATE SODIUM LIQ 100 MG/10 ML UDC PO SCH (08:15)
[2017-12-05] MEDS: CLOPIDOGREL BISULFATE 75 MG TABLET PO SCH (08:15)
[2017-12-05] MEDS: ASPIRIN EC 81 MG TABLET.DR PO SCH (08:15)
[2017-12-05] MEDS: ZINC SULFATE 220 MG CAPSULE PO SCH (08:15)
[2017-12-05] MEDS: ASCORBIC ACID 500 MG TABLET PO SCH (08:15)
[2017-12-05] MEDS: GABAPENTIN 100 MG CAPSULE PO SCH (08:15)
[2017-12-05] MEDS: CADEXOMER IODINE 40 GM TUBE TP SCH (08:16)
[2017-12-05] MEDS: NEOMY SULF/BACITRAC ZN/POLY 15 GM TUBE TP SCH (08:17)
[2017-12-05] MEDS: NAPROXEN 250 MG TABLET PO SCH (08:23)
--- NOTE | 2017-12-05 12:45 | NUR ---
PT D/C FROM MS UNIT. PT AWAKE A/O X 1-2, VS ARE STABLE. NO S/S DISTRESS NOTED, ON ROOM AIR. PT D/C INSTRUCTIONS GIVEN . IV LINE REMOVED. PT TRANSFERRED TO [facility]. REPORT TO FACILITY GIVEN
== END 2017-12-05 12:45 | DRG 166 ==
LOC: ER 17:21 → MED 20:07 → TELE 11-29 00:30 → MED 11-29 08:32
PROVIDERS: ADMIT Internal Medicine; ATTEND Internal Medicine
PROC: 0JB70ZZ Excision of Back Subcutaneous Tissue and Fascia, Open Approach (ICD-10-PCS; principal; 2017-12-01)
PROC: 0JB90ZZ Excision of Buttock Subcutaneous Tissue and Fascia, Open Approach (ICD-10-PCS; 2017-12-01)
DX: J69.0 Pneumonitis due to inhalation of food and vomit (principal); E43 Unspecified severe protein-calorie malnutrition; L89.153 Pressure ulcer of sacral region, stage 3; L89.323 Pressure ulcer of left buttock, stage 3; L89.313 Pressure ulcer of right buttock, stage 3; E87.1 Hypo-osmolality and hyponatremia; D68.59 Other primary thrombophilia; I69.354 Hemiplegia and hemiparesis following cerebral infarction affecting left non-dominant side; R13.10 Dysphagia, unspecified; E11.9 Type 2 diabetes mellitus without complications; Z79.82 Long term (current) use of aspirin; Z79.4 Long term (current) use of insulin; Z87.891 Personal history of nicotine dependence; G89.29 Other chronic pain; M54.10 Radiculopathy, site unspecified; Z87.19 Personal history of other diseases of the digestive system; K56.41 Fecal impaction; E78.5 Hyperlipidemia, unspecified; L30.4 Erythema intertrigo; D64.9 Anemia, unspecified; L89.120 Pressure ulcer of left upper back, unstageable; L89.220 Pressure ulcer of left hip, unstageable; S51.012A Laceration without foreign body of left elbow, initial encounter; S80.211A Abrasion, right knee, initial encounter; X58.XXXA Exposure to other specified factors, initial encounter; E83.42 Hypomagnesemia; S01.00XA Unspecified open wound of scalp, initial encounter; E83.39 Other disorders of phosphorus metabolism; M48.02 Spinal stenosis, cervical region
CPT/HCPCS: 36415; 70490-TC; 71045-TC; 72100-TC; 80048-TC; 80053-TC; 80061-TC; 80076-TC; 81000-TC; 82962-TC; 83735-TC; 84100-TC; 84443-TC; 84484-TC; 85025-TC; 85730-TC; 87081-TC; 87400; 92521; 92526; A4216; A4606; A6253; A6402; A6403; C9113; G0378; J0696; J1170; J1650; J1815; J1956; J2060; J2270; J2405; J3475; J3490; J7030; Z7610